=== PATIENT | male | born 1995 | race Caucasian/White ===

== ENCOUNTER 2017-08-06 23:23 | Emergency (ER) | payer OTHER ==
[~2017-08-06] VITALS: Ht 175.3 cm; Wt 70.4 kg
[~2017-08-06 23:23] MED LIST: ZOFRAN4 MG PO
[2017-08-07 02:22] VITALS: BP 102/66
== END 2017-08-07 03:02 | disposition home or self-care (01) ==
LOC: EXP 23:23 → EME 23:23 → EXP 08-07 03:02
DX: R55 Syncope and collapse (principal); R00.2 Palpitations
CPT/HCPCS: 93005; 99281; 99284